=== PATIENT | female | born 1970 | race Caucasian/White ===

== ENCOUNTER → 2016-10-21 | Outpatient (CLI) | payer BC ==
[2004-03-31 13:27] VITALS: PULSE 77; TEMP 98
== END ==
LOC: MC.RAD 09:33
DX: Z12.31 Encounter for screening mammogram for malignant neoplasm of breast (principal)

== ENCOUNTER → 2017-10-27 | Outpatient (CLI) | payer BC ==
[2004-03-31 13:27] VITALS: PULSE 77; TEMP 98
== END ==
LOC: MC.RAD 09:00
DX: Z12.31 Encounter for screening mammogram for malignant neoplasm of breast (principal)

== ENCOUNTER → 2018-10-30 | Outpatient (CLI) | payer BC ==
[2004-03-31 13:27] VITALS: PULSE 77; TEMP 98
== END ==
LOC: MC.RAD 09:46
DX: Z12.31 Encounter for screening mammogram for malignant neoplasm of breast (principal); N63.11 Unspecified lump in the right breast, upper outer quadrant

== ENCOUNTER → 2018-11-01 | Outpatient (CLI) | payer BC ==
[2004-03-31 13:27] VITALS: PULSE 77; TEMP 98
== END ==
LOC: MC.RAD 13:59
DX: N63.11 Unspecified lump in the right breast, upper outer quadrant (principal)
CPT/HCPCS: G0279

== ENCOUNTER → 2019-04-16 | Outpatient (CLI) | payer BC ==
[2004-03-31 13:27] VITALS: PULSE 77; TEMP 98
== END ==
LOC: MC.RAD 08:00
DX: N60.01 Solitary cyst of right breast (principal)
CPT/HCPCS: G0279

== ENCOUNTER → 2019-10-24 | Outpatient (CLI) | payer BC ==
[2004-03-31 13:27] VITALS: PULSE 77; TEMP 98
== END ==
LOC: MC.RAD 09:23
DX: Z12.31 Encounter for screening mammogram for malignant neoplasm of breast (principal); N63.10 Unspecified lump in the right breast, unspecified quadrant

== ENCOUNTER → 2019-10-31 | Outpatient (CLI) | payer BC ==
[2004-03-31 13:27] VITALS: PULSE 77; TEMP 98
== END ==
LOC: MC.RAD 08:15
DX: N60.01 Solitary cyst of right breast (principal)

== ENCOUNTER → 2020-04-17 | Outpatient (CLI) | payer BC ==
[2004-03-31 13:27] VITALS: PULSE 77; TEMP 98
== END ==
LOC: MC.RAD 10:00
DX: R92.8 Other abnormal and inconclusive findings on diagnostic imaging of breast (principal)

== ENCOUNTER → 2020-10-24 | Outpatient (CLI) | payer BC ==
[2004-03-31 13:27] VITALS: PULSE 77; TEMP 98
== END ==
LOC: MC.RAD 11:26
DX: Z12.31 Encounter for screening mammogram for malignant neoplasm of breast (principal)

== ENCOUNTER → 2021-10-29 | Outpatient (CLI) | payer BC ==
[2004-03-31 13:27] VITALS: PULSE 77; TEMP 98
== END ==
LOC: MC.RAD 10:00
DX: Z12.31 Encounter for screening mammogram for malignant neoplasm of breast (principal); N64.89 Other specified disorders of breast

== ENCOUNTER → 2021-11-19 | Outpatient (CLI) | payer BC ==
[2004-03-31 13:27] VITALS: PULSE 77; TEMP 98
== END ==
LOC: MC.RAD 10:57
DX: N63.10 Unspecified lump in the right breast, unspecified quadrant (principal)

== ENCOUNTER → 2021-11-24 | Outpatient (CLI) | payer BC ==
[2004-03-31 13:27] VITALS: PULSE 77; TEMP 98
== END ==
LOC: MC.RAD 09:53
DX: N60.02 Solitary cyst of left breast (principal)

== ENCOUNTER 2023-02-03 08:45 | Outpatient (RCR) | payer BC ==
[2004-03-31 13:27] VITALS: TEMP 98
== END 2023-02-05 | disposition home or self-care (01) ==
LOC: PT.GENESIS
DX: M75.81 Other shoulder lesions, right shoulder (principal)

== ENCOUNTER → 2024-01-06 | Outpatient (CLI) | payer BC ==
[2004-03-31 13:27] VITALS: PULSE 77; TEMP 98
== END ==
LOC: MC.RAD 08:40
DX: Z12.31 Encounter for screening mammogram for malignant neoplasm of breast (principal)